=== PATIENT | female | born 2000 | race Caucasian/White ===

== ENCOUNTER → 2021-03-26 14:47 | Outpatient (CLI) | payer SELFPAY ==
[2021-03-26 16:37] LABS: Hematocrit 40.9 % (37-47); Hemoglobin 13.5 g/dL (12.0-15.0); Mean Corpuscular Hgb 29.2 pg (27.0-32.0); Mean Corpuscular Volume 88.3 fL (81-99); Mean Platelet Vol. 10.4 fl (6.2-12.0); Platelet Count 288 K/mm3 (150-450); RBC Distribution Width SD 38.7 fl (35.1-43.9); Red Blood Count 4.63 M/mm3 (4.2-5.4); White Blood Count 6.9 K/mm3 (4.4-11.0)
[2021-03-26 16:55] LABS: Estradiol 217.9 pg/mL; Follicle Stimulating Hormone 9.8 mIU/mL; Luteinizing Hormone 47.8 mIU/mL; Prolactin 38.6 ng/mL; T4 Free Direct 1.06 ng/dL (0.76-1.46); Thyroid Stim Hormone (TSH) 2.48 uIU/mL (0.358-3.74)
[2021-03-26 16:56] LABS: Hemoglobin A1c 4.9 % (3.8-5.6)
== END ==
PROVIDERS: Visit Provider Obstetrics & Gynecology
DX: N93.9 Abnormal uterine and vaginal bleeding, unspecified (principal)
CPT/HCPCS: 36415; 82627; 82670; 83001; 83002; 83036; 84146; 84402; 84439; 84443; 85027; 82626